=== PATIENT | male | born 1985 | race Caucasian/White ===

== ENCOUNTER 2016-09-18 08:56 | Emergency (ER) | payer OTHER ==
[~2016-09-18 08:56] MED LIST: LOPRESSOR50 MG PO; METOPROLOL TART25 M1 PO; ZES10 PO; ZOC10 PO
[2016-09-18 10:01] LABS: BASOPHIL % 0.5 % (0-2); PLATELET COUNT 199 x10^3mcL (130-400); RED CELL DISTRIBUTION WIDTH 12.3 % (11.5-14.5)
[2016-09-18 10:14] LABS: CALCIUM 8.9 mg/dL (8.5-10.1); CHLORIDE SERUM 106 mmol/L (98-107); GFR1 > 60 mL/min; GLUCOSE SERUM 117 mg/dL (74-106); POTASSIUM SERUM 3.9 mmol/L (3.5-5.1); SODIUM SERUM 143 mmol/L (136-145)
[2016-09-18 10:17] LABS: ALKALINE PHOSPHATASE 69 U/L (46-116); ALT/SGPT 47 U/L (16-63); AMYLASE 83 U/L (25-115); AST/SGOT 19 U/L (15-37); BILIRUBIN TOTAL 0.5 mg/dL (0.20-1.00); LIPASE 114 IU/L (73-393); TOTAL PROTEIN, SERUM 7.4 g/dL (6.4-8.2)
[2016-09-18 10:34] LABS: AMPHETAMINE QUAL UR NONE DETECTED (NEG <=1000)
[2016-09-18 11:58] VITALS: BP 141/84
== END 2016-09-18 11:58 | disposition home or self-care (01) ==
LOC: ED 08:56
PROVIDERS: Emergency Medicine
DX: F41.1 Generalized anxiety disorder (principal); I10 Essential (primary) hypertension; E78.00 Pure hypercholesterolemia, unspecified
CPT/HCPCS: 80307; G0480

== ENCOUNTER 2016-11-24 08:53 | Emergency (ER) | payer OTHER ==
[~2016-11-24] VITALS: Ht 177.8 cm; Wt 103.0 kg
[2016-11-24 10:30] VITALS: BP 142/88
== END 2016-11-24 10:32 | disposition home or self-care (01) ==
LOC: ED 08:53
DX: G56.03 Carpal tunnel syndrome, bilateral upper limbs (principal); I10 Essential (primary) hypertension

== ENCOUNTER 2016-12-01 15:50 | Emergency (ER) | payer OTHER ==
[2016-12-01 16:46] LABS: BASOPHIL % 0.4 % (0-2); PLATELET COUNT 237 x10^3mcL (130-400); RED CELL DISTRIBUTION WIDTH 13.3 % (11.5-14.5)
[2016-12-01 16:56] LABS: CALCIUM 9.6 mg/dL (8.5-10.1); CARBON DIOXIDE 30.8 mmol/L (21-32); CHLORIDE SERUM 106 mmol/L (98-107); CREATININE SERUM 1.1 mg/dL (0.7-1.3); GFR1 > 60 mL/min; GLUCOSE SERUM 109 mg/dL (74-106); POTASSIUM SERUM 3.8 mmol/L (3.5-5.1); SODIUM SERUM 143 mmol/L (136-145)
[2016-12-01 17:08] LABS: ALBUMIN 4.4 g/dL (3.4-5.0); ALKALINE PHOSPHATASE 84 U/L (46-116); ALT/SGPT 79 U/L (16-63); AST/SGOT 36 U/L (15-37); BILIRUBIN TOTAL 0.5 mg/dL (0.20-1.00); T4(THYROXINE) 8.2 ug/dL (4.7-13.3)
[2016-12-01 17:16] LABS: TOTAL PROTEIN, SERUM 8.4 g/dL (6.4-8.2)
[2016-12-01 17:47] LABS: AMPHETAMINE QUAL UR NONE DETECTED (NEG <=1000)
[2016-12-01 18:36] VITALS: BP 149/98
== END 2016-12-01 18:36 | disposition home or self-care (01) ==
LOC: ED 15:50
PROVIDERS: Emergency Medicine
DX: R00.2 Palpitations (principal); I10 Essential (primary) hypertension
CPT/HCPCS: 36415

== ENCOUNTER 2016-12-22 17:05 | Emergency (ER) | payer OTHER ==
[~2016-12-22] VITALS: Ht 175.3 cm; Wt 104.3 kg
[2016-12-22 20:00] VITALS: BP 145/99
== END 2016-12-22 20:00 | disposition home or self-care (01) ==
LOC: ED 17:05
DX: F41.1 Generalized anxiety disorder (principal); I10 Essential (primary) hypertension; E78.5 Hyperlipidemia, unspecified

== ENCOUNTER 2017-01-27 13:23 | Emergency (ER) | payer OTHER ==
[2017-01-27 16:13] LABS: BASOPHIL % 0.5 % (0-2); PLATELET COUNT 235 x10^3mcL (130-400); RED CELL DISTRIBUTION WIDTH 13.3 % (11.5-14.5)
[2017-01-27 16:17] LABS: CALCIUM 9.3 mg/dL (8.5-10.1); CARBON DIOXIDE 27.5 mmol/L (21-32); CHLORIDE SERUM 102 mmol/L (98-107); CREATININE SERUM 0.8 mg/dL (0.7-1.3); GFR1 > 60 mL/min; GLUCOSE SERUM 95 mg/dL (74-106); POTASSIUM SERUM 3.9 mmol/L (3.5-5.1); SODIUM SERUM 138 mmol/L (136-145)
[2017-01-27 17:05] LABS: AMPHETAMINE QUAL UR NONE DETECTED (NEG <=1000)
[2017-01-27 18:36] VITALS: BP 133/97
== END 2017-01-27 18:45 | disposition home or self-care (01) ==
LOC: ED 13:23
PROVIDERS: Emergency Medicine
DX: F41.9 Anxiety disorder, unspecified (principal)
CPT/HCPCS: 36415; Q0092

== ENCOUNTER 2017-02-09 14:50 | Emergency (ER) | payer OTHER ==
[~2017-02-09] VITALS: Ht 175.3 cm; Wt 103.9 kg
[2017-02-09 17:32] VITALS: BP 155/95
== END 2017-02-09 17:32 | disposition home or self-care (01) ==
LOC: ED 14:50
DX: F41.9 Anxiety disorder, unspecified (principal); F14.10 Cocaine abuse, uncomplicated; F10.20 Alcohol dependence, uncomplicated; R03.0 Elevated blood-pressure reading, without diagnosis of hypertension; E78.5 Hyperlipidemia, unspecified; E66.9 Obesity, unspecified

== ENCOUNTER 2017-02-17 15:15 | Emergency (ER) | payer OTHER ==
[~2017-02-17] VITALS: Ht 175.3 cm; Wt 103.6 kg
[2017-02-17 16:09] LABS: BASOPHIL % 0.3 % (0-2); PLATELET COUNT 239 x10^3mcL (130-400); RED CELL DISTRIBUTION WIDTH 13.6 % (11.5-14.5)
[2017-02-17 16:19] LABS: AMPHETAMINE QUAL UR NONE DETECTED (NEG <=1000)
[2017-02-17 16:20] LABS: CALCIUM 9.1 mg/dL (8.5-10.1); CARBON DIOXIDE 27.1 mmol/L (21-32); CHLORIDE SERUM 105 mmol/L (98-107); CREATININE SERUM 0.9 mg/dL (0.7-1.3); GFR1 > 60 mL/min; GLUCOSE SERUM 114 mg/dL (74-106); POTASSIUM SERUM 3.7 mmol/L (3.5-5.1); SODIUM SERUM 140 mmol/L (136-145)
[2017-02-17 16:33] LABS: ALBUMIN 4.1 g/dL (3.4-5.0); ALKALINE PHOSPHATASE 80 U/L (46-116); ALT/SGPT 111 U/L (16-63); AST/SGOT 45 U/L (15-37); BILIRUBIN TOTAL 0.33 mg/dL (0.20-1.00); T4(THYROXINE) 8.6 ug/dL (4.7-13.3); TOTAL PROTEIN, SERUM 8.1 g/dL (6.4-8.2)
[2017-02-17 16:37] LABS: CK-MB 2.5 ng/mL (0-3.6)
[2017-02-17 17:56] VITALS: BP 153/102
== END 2017-02-17 17:54 | disposition home or self-care (01) ==
LOC: ED 15:15
PROVIDERS: Emergency Medicine
DX: R07.89 Other chest pain (principal); F41.9 Anxiety disorder, unspecified; I10 Essential (primary) hypertension; E78.5 Hyperlipidemia, unspecified
CPT/HCPCS: 36415; 36600; 83880

== ENCOUNTER 2017-02-28 16:09 | Emergency (ER) | payer OTHER ==
[~2017-02-28] VITALS: Ht 175.3 cm; Wt 103.0 kg
[2017-02-28 17:15] VITALS: BP 133/84
== END 2017-02-28 17:15 | disposition home or self-care (01) ==
LOC: ED 16:09
DX: F41.1 Generalized anxiety disorder (principal); I10 Essential (primary) hypertension; E78.5 Hyperlipidemia, unspecified

== ENCOUNTER 2017-03-06 21:01 | Emergency (ER) | payer OTHER ==
[2017-03-06 21:55] LABS: CALCIUM 8.7 mg/dL (8.5-10.1); CARBON DIOXIDE 25.7 mmol/L (21-32); CHLORIDE SERUM 103 mmol/L (98-107); CREATININE SERUM 0.9 mg/dL (0.7-1.3); GFR1 > 60 mL/min; GLUCOSE SERUM 107 mg/dL (74-106); MAGNESIUM 2.1 mg/dL (1.8-2.4); POTASSIUM SERUM 3.3 mmol/L (3.5-5.1); SODIUM SERUM 138 mmol/L (136-145)
[2017-03-06 21:56] LABS: BASOPHIL % 0.3 % (0-2); PLATELET COUNT 202 x10^3mcL (130-400); RED CELL DISTRIBUTION WIDTH 13.1 % (11.5-14.5)
[2017-03-06 23:27] VITALS: BP 131/98
== END 2017-03-06 23:27 | disposition home or self-care (01) ==
LOC: ED 21:01
PROVIDERS: Emergency Medicine
DX: E86.0 Dehydration (principal); R06.00 Dyspnea, unspecified
CPT/HCPCS: J7030

== ENCOUNTER 2017-04-12 10:36 | Emergency (ER) | payer OTHER ==
[2017-04-12 11:45] LABS: AMPHETAMINE QUAL UR NONE DETECTED (NEG <=1000)
[2017-04-12 11:47] LABS: LIPASE 112 IU/L (73-393)
[2017-04-12 13:51] VITALS: BP 149/95
== END 2017-04-12 13:51 | disposition home or self-care (01) ==
LOC: ED 10:36
PROVIDERS: Emergency Medicine
DX: R07.89 Other chest pain (principal); F41.0 Panic disorder [episodic paroxysmal anxiety]; I10 Essential (primary) hypertension; E78.5 Hyperlipidemia, unspecified; E66.9 Obesity, unspecified
CPT/HCPCS: G0480

== ENCOUNTER 2017-04-24 17:33 | Emergency (ER) | payer OTHER | END 2017-04-24 18:13 | disposition left against medical advice (07) | LOC: ED 17:33 | DX: Z53.21 Procedure and treatment not carried out due to patient leaving prior to being seen by health care provider (principal) ==

== ENCOUNTER 2017-06-13 18:05 | Emergency (ER) | payer OTHER ==
[~2017-06-13] VITALS: Ht 172.7 cm; Wt 104.3 kg
[2017-06-13 18:13] VITALS: Ht 172.7 cm; Wt 104.3 kg
[2017-06-13 19:25] VITALS: BP 150/90
== END 2017-06-13 19:25 | disposition home or self-care (01) ==
LOC: ED 18:05
DX: I10 Essential (primary) hypertension (principal); E78.5 Hyperlipidemia, unspecified

== ENCOUNTER 2017-07-14 11:44 | Emergency (ER) | payer OTHER ==
[~2017-07-14] VITALS: Ht 177.8 cm; Wt 103.9 kg
[2017-07-14 11:45] VITALS: Ht 177.8 cm; Wt 103.9 kg
[2017-07-14 12:59] VITALS: BP 156/94
== END 2017-07-14 12:59 | disposition home or self-care (01) ==
LOC: ED 11:44
DX: F41.9 Anxiety disorder, unspecified (principal); I10 Essential (primary) hypertension; E78.00 Pure hypercholesterolemia, unspecified
CPT/HCPCS: J2060

== ENCOUNTER 2017-08-28 20:40 | Emergency (ER) | payer OTHER ==
[~2017-08-28] VITALS: Ht 177.8 cm; Wt 104.5 kg
[2017-08-28 23:05] LABS: BASOPHIL % 0.4 % (0-2); PLATELET COUNT 201 x10^3mcL (130-400); RED CELL DISTRIBUTION WIDTH 12.9 % (11.5-14.5)
[2017-08-28 23:22] LABS: CALCIUM 9.3 mg/dL (8.5-10.1); CARBON DIOXIDE 31.2 mmol/L (21-32); CHLORIDE SERUM 102 mmol/L (98-107); GFR1 > 60 mL/min; GLUCOSE SERUM 93 mg/dL (74-106); POTASSIUM SERUM 3.6 mmol/L (3.5-5.1); SODIUM SERUM 140 mmol/L (136-145)
[2017-08-28 23:27] LABS: ALBUMIN 4.1 g/dL (3.4-5.0); ALKALINE PHOSPHATASE 70 U/L (46-116); ALT/SGPT 129 U/L (16-63); AST/SGOT 50 U/L (15-37); BILIRUBIN TOTAL 0.5 mg/dL (0.20-1.00); LIPASE 102 IU/L (73-393); TOTAL PROTEIN, SERUM 7.6 g/dL (6.4-8.2)
[2017-08-28 23:40] VITALS: BP 134/85
== END 2017-08-28 23:40 | disposition home or self-care (01) ==
LOC: ED 20:40
PROVIDERS: Emergency Medicine
DX: R10.11 Right upper quadrant pain (principal); I10 Essential (primary) hypertension; E78.5 Hyperlipidemia, unspecified
CPT/HCPCS: 36415

== ENCOUNTER 2017-09-15 08:47 | Emergency (ER) | payer OTHER ==
[~2017-09-15] VITALS: Ht 177.8 cm; Wt 105.7 kg
[2017-09-15 08:52] VITALS: Ht 177.8 cm; Wt 105.7 kg
[2017-09-15 10:51] VITALS: BP 138/86
== END 2017-09-15 10:51 | disposition home or self-care (01) ==
LOC: ED 08:47
DX: F41.9 Anxiety disorder, unspecified (principal); I10 Essential (primary) hypertension

== ENCOUNTER 2017-12-15 23:00 | Emergency (ER) | payer OTHER ==
[~2017-12-15] VITALS: Ht 177.8 cm; Wt 105.3 kg
[2017-12-15 23:47] VITALS: BP 134/96
== END 2017-12-15 23:42 | disposition home or self-care (01) ==
LOC: ED 23:00
DX: Z03.6 Encounter for observation for suspected toxic effect from ingested substance ruled out (principal); F41.9 Anxiety disorder, unspecified; I10 Essential (primary) hypertension

== ENCOUNTER 2018-02-23 11:19 | Emergency (ER) | payer OTHER ==
[~2018-02-23] VITALS: Ht 177.8 cm; Wt 103.9 kg
[2018-02-23 11:24] VITALS: BP 151/98; Ht 177.8 cm; Wt 103.9 kg
== END 2018-02-23 13:36 | disposition home or self-care (01) ==
LOC: ED 11:19
DX: T54.2X1A Toxic effect of corrosive acids and acid-like substances, accidental (unintentional), initial encounter (principal); Y92.69 Other specified industrial and construction area as the place of occurrence of the external cause; F41.9 Anxiety disorder, unspecified

== ENCOUNTER 2018-02-28 18:31 | Emergency (ER) | payer OTHER ==
[~2018-02-28] VITALS: Ht 177.8 cm; Wt 104.3 kg
[2018-02-28 19:23] VITALS: BP 134/94
== END 2018-02-28 19:23 | disposition home or self-care (01) ==
LOC: ED 18:31
DX: F41.0 Panic disorder [episodic paroxysmal anxiety] (principal); F10.10 Alcohol abuse, uncomplicated; I10 Essential (primary) hypertension; E78.00 Pure hypercholesterolemia, unspecified; K21.9 Gastro-esophageal reflux disease without esophagitis

== ENCOUNTER 2018-03-09 12:39 | Emergency (ER) | payer OTHER ==
[~2018-03-09] VITALS: Ht 175.3 cm; Wt 104.3 kg
[2018-03-09 12:41] VITALS: Ht 175.3 cm; Wt 104.3 kg
[2018-03-09 14:57] VITALS: BP 140/89
== END 2018-03-09 14:57 | disposition home or self-care (01) ==
LOC: ED 12:39
DX: F41.9 Anxiety disorder, unspecified (principal); R25.2 Cramp and spasm; I10 Essential (primary) hypertension; E78.5 Hyperlipidemia, unspecified; K21.9 Gastro-esophageal reflux disease without esophagitis

== ENCOUNTER 2018-03-09 20:06 | Emergency (ER) | payer OTHER ==
[2018-03-09 20:48] VITALS: BP 155/100; Ht 175.3 cm
== END 2018-03-09 22:26 | disposition left against medical advice (07) ==
LOC: ED 20:06
DX: Z53.21 Procedure and treatment not carried out due to patient leaving prior to being seen by health care provider (principal)

== ENCOUNTER 2018-04-07 16:43 | Emergency (ER) | payer OTHER ==
[~2018-04-07] VITALS: Ht 175.3 cm; Wt 102.5 kg
[2018-04-07 18:33] VITALS: BP 143/105
== END 2018-04-07 18:41 | disposition home or self-care (01) ==
LOC: ED 16:43
DX: F45.8 Other somatoform disorders (principal); I10 Essential (primary) hypertension; E78.00 Pure hypercholesterolemia, unspecified; F41.9 Anxiety disorder, unspecified; E78.5 Hyperlipidemia, unspecified; K21.9 Gastro-esophageal reflux disease without esophagitis

== ENCOUNTER 2018-04-10 18:37 | Emergency (ER) | payer OTHER ==
[~2018-04-10] VITALS: Ht 175.3 cm; Wt 99.8 kg
[2018-04-10 18:46] VITALS: Ht 175.3 cm; Wt 99.8 kg
[2018-04-10 20:26] VITALS: BP 137/98
== END 2018-04-10 20:26 | disposition home or self-care (01) ==
LOC: ED 18:37
DX: F41.9 Anxiety disorder, unspecified (principal); F15.10 Other stimulant abuse, uncomplicated; I10 Essential (primary) hypertension; E78.5 Hyperlipidemia, unspecified; K21.9 Gastro-esophageal reflux disease without esophagitis

== ENCOUNTER 2018-05-24 16:50 | Emergency (ER) | payer OTHER ==
[~2018-05-24] VITALS: Ht 177.8 cm; Wt 105.0 kg
[2018-05-24 17:18] VITALS: Ht 177.8 cm; Wt 105.0 kg
[2018-05-24 20:59] VITALS: BP 141/98
== END 2018-05-24 20:59 | disposition home or self-care (01) ==
LOC: ED 16:50
DX: I10 Essential (primary) hypertension (principal); F41.9 Anxiety disorder, unspecified; K21.9 Gastro-esophageal reflux disease without esophagitis; E78.5 Hyperlipidemia, unspecified; F10.10 Alcohol abuse, uncomplicated

== ENCOUNTER 2018-06-05 12:28 | Emergency (ER) | payer OTHER ==
[~2018-06-05] VITALS: Ht 165.1 cm; Wt 103.9 kg
[2018-06-05 12:37] VITALS: Ht 165.1 cm; Wt 103.9 kg
[2018-06-05 13:20] VITALS: BP 146/89
== END 2018-06-05 13:20 | disposition home or self-care (01) ==
LOC: ED 12:28
DX: S00.06XA Insect bite (nonvenomous) of scalp, initial encounter (principal); F41.9 Anxiety disorder, unspecified; I10 Essential (primary) hypertension; K21.9 Gastro-esophageal reflux disease without esophagitis; E78.5 Hyperlipidemia, unspecified; F10.10 Alcohol abuse, uncomplicated; W57.XXXA Bitten or stung by nonvenomous insect and other nonvenomous arthropods, initial encounter; Y93.89 Activity, other specified; Y92.89 Other specified places as the place of occurrence of the external cause; Y99.8 Other external cause status

== ENCOUNTER 2018-06-12 12:09 | Emergency (ER) | payer OTHER ==
[~2018-06-12] VITALS: Ht 177.8 cm; Wt 104.8 kg
[2018-06-12 12:13] VITALS: BP 145/103; Ht 177.8 cm; Wt 104.8 kg
== END 2018-06-12 14:23 | disposition left against medical advice (07) ==
LOC: ED 12:09
DX: Z53.21 Procedure and treatment not carried out due to patient leaving prior to being seen by health care provider (principal)

== ENCOUNTER 2018-07-16 10:03 | Emergency (ER) | payer OTHER ==
[~2018-07-16] VITALS: Ht 177.8 cm; Wt 103.9 kg
[2018-07-16 10:28] VITALS: Ht 177.8 cm; Wt 103.9 kg
[2018-07-16 15:19] VITALS: BP 135/87
== END 2018-07-16 15:19 | disposition home or self-care (01) ==
LOC: ED 10:03
DX: F41.9 Anxiety disorder, unspecified (principal); R07.89 Other chest pain; R20.2 Paresthesia of skin; I10 Essential (primary) hypertension; F10.10 Alcohol abuse, uncomplicated; K21.9 Gastro-esophageal reflux disease without esophagitis; E78.5 Hyperlipidemia, unspecified; Y90.0 Blood alcohol level of less than 20 mg/100 ml

== ENCOUNTER 2018-09-28 21:00 | Inpatient (IN) | payer OTHER ==
[~2018-09-28] VITALS: Ht 177.8 cm; Wt 101.3 kg
[2018-09-28 22:05] LABS: BASOPHIL % 0.3 % (0-2); PLATELET COUNT 183 x10^3mcL (130-400); RED CELL DISTRIBUTION WIDTH 12.8 % (11.5-14.5)
[2018-09-28 22:14] LABS: CALCIUM 8.7 mg/dL (8.5-10.1); CHLORIDE SERUM 98 mmol/L (98-107); CREATININE SERUM 1.3 mg/dL (0.7-1.3); GFR1 > 60 mL/min; GLUCOSE SERUM 142 mg/dL (74-106); POTASSIUM SERUM 3.3 mmol/L (3.5-5.1); SODIUM SERUM 134 mmol/L (136-145)
[2018-09-28 22:19] LABS: ALBUMIN 4.1 g/dL (3.4-5.0); ALKALINE PHOSPHATASE 67 U/L (46-116); ALT/SGPT 88 U/L (16-63); AST/SGOT 28 U/L (15-37); BILIRUBIN TOTAL 1.15 mg/dL (0.20-1.00); LIPASE 94 IU/L (73-393); TOTAL PROTEIN, SERUM 7.6 g/dL (6.4-8.2)
[2018-09-29 00:19] VITALS: BP 156/87
[2018-09-29 00:21] VITALS: Ht 177.8 cm; Wt 101.3 kg
[2018-09-29 05:36] VITALS: BP 130/85
[2018-09-29 07:08] LABS: BASOPHIL % 0.3 % (0-2); PLATELET COUNT 179 x10^3mcL (130-400); RED CELL DISTRIBUTION WIDTH 13.1 % (11.5-14.5)
[2018-09-29 07:23] LABS: ALBUMIN 3.4 g/dL (3.4-5.0); ALKALINE PHOSPHATASE 54 U/L (46-116); ALT/SGPT 68 U/L (16-63); AST/SGOT 25 U/L (15-37); BILIRUBIN TOTAL 1.5 mg/dL (0.20-1.00); CALCIUM 8.3 mg/dL (8.5-10.1); CARBON DIOXIDE 27.1 mmol/L (21-32); CHLORIDE SERUM 102 mmol/L (98-107); CREATININE SERUM 1.1 mg/dL (0.7-1.3); GFR1 > 60 mL/min; GLUCOSE SERUM 105 mg/dL (74-106); POTASSIUM SERUM 3.7 mmol/L (3.5-5.1); SODIUM SERUM 139 mmol/L (136-145)
[2018-09-29 08:35] VITALS: BP 126/80
[2018-09-29 17:22] VITALS: BP 128/78
[2018-09-29 21:10] VITALS: BP 110/60
[2018-09-30 05:29] VITALS: BP 108/71
[2018-09-30 06:22] LABS: BASOPHIL % 0.2 % (0-2); PLATELET COUNT 196 x10^3mcL (130-400); RED CELL DISTRIBUTION WIDTH 13.3 % (11.5-14.5)
[2018-09-30 06:41] LABS: ALBUMIN 3.5 g/dL (3.4-5.0); ALKALINE PHOSPHATASE 49 U/L (46-116); ALT/SGPT 63 U/L (16-63); AST/SGOT 32 U/L (15-37); BILIRUBIN TOTAL 0.7 mg/dL (0.20-1.00); CARBON DIOXIDE 26.9 mmol/L (21-32); CHLORIDE SERUM 103 mmol/L (98-107); GFR1 > 60 mL/min; GLUCOSE SERUM 141 mg/dL (74-106); MAGNESIUM 2.2 mg/dL (1.8-2.4); PHOSPHOROUS 3.2 mg/dL (2.5-4.9); POTASSIUM SERUM 3.9 mmol/L (3.5-5.1); SODIUM SERUM 140 mmol/L (136-145); TOTAL PROTEIN, SERUM 7.5 g/dL (6.4-8.2)
[2018-09-30 09:00] VITALS: BP 117/69
[2018-09-30] MEDS ORDERED: NOR5 PO (14:35)
[2018-09-30] MEDS ORDERED: NORCO1 TA2 PO (14:36)
[2018-09-30 16:26] VITALS: BP 108/71
[2018-09-30 17:14] VITALS: BP 117/69
== END 2018-09-30 17:30 | disposition home or self-care (01) | DRG 234 ==
LOC: ED 21:00 → MU 23:13
PROVIDERS: Emergency Medicine; Surgery; ADMIT Internal Medicine
PROC: 0DTJ4ZZ Resection of Appendix, Percutaneous Endoscopic Approach (ICD-10-PCS; principal; 2018-09-29 15:00)
DX: K35.80 Unspecified acute appendicitis (principal); E78.5 Hyperlipidemia, unspecified; F10.10 Alcohol abuse, uncomplicated; Y90.0 Blood alcohol level of less than 20 mg/100 ml; K21.9 Gastro-esophageal reflux disease without esophagitis; F41.9 Anxiety disorder, unspecified; I10 Essential (primary) hypertension
CPT/HCPCS: J1170; J2175; J2250; J2543; J3010; J3480; J3490; J7030; J7042

== ENCOUNTER 2018-10-05 19:34 | Emergency (ER) | payer OTHER ==
[~2018-10-05] VITALS: Ht 177.8 cm; Wt 103.4 kg
[~2018-10-05 19:34] MED LIST changes: +NOR5 PO; +NORCO1 TA2 PO
[2018-10-05 19:47] VITALS: Ht 177.8 cm; Wt 103.4 kg
[2018-10-05 20:35] LABS: BASOPHIL % 0.5 % (0-2); PLATELET COUNT 253 x10^3mcL (130-400); RED CELL DISTRIBUTION WIDTH 12.9 % (11.5-14.5)
[2018-10-05 20:40] LABS: CALCIUM 9.3 mg/dL (8.5-10.1); CARBON DIOXIDE 34.6 mmol/L (21-32); CHLORIDE SERUM 101 mmol/L (98-107); GFR1 > 60 mL/min; GLUCOSE SERUM 119 mg/dL (74-106); POTASSIUM SERUM 3.8 mmol/L (3.5-5.1); SODIUM SERUM 140 mmol/L (136-145)
[2018-10-05 20:45] LABS: ALKALINE PHOSPHATASE 93 U/L (46-116); ALT/SGPT 88 U/L (16-63); AST/SGOT 24 U/L (15-37); BILIRUBIN TOTAL 0.5 mg/dL (0.20-1.00)
[2018-10-05 22:51] VITALS: BP 164/93
== END 2018-10-05 22:51 | disposition home or self-care (01) ==
LOC: ED 19:34
DX: R10.32 Left lower quadrant pain (principal); G89.18 Other acute postprocedural pain; Z90.89 Acquired absence of other organs
CPT/HCPCS: 36415

== ENCOUNTER 2018-10-21 18:37 | Emergency (ER) | payer OTHER ==
[~2018-10-21] VITALS: Ht 177.8 cm; Wt 102.1 kg
[2018-10-21 18:40] VITALS: Ht 177.8 cm; Wt 102.1 kg
[2018-10-21 19:32] VITALS: BP 149/95
== END 2018-10-21 19:32 | disposition home or self-care (01) ==
LOC: ED 18:37
DX: R10.32 Left lower quadrant pain (principal); R19.7 Diarrhea, unspecified; L90.5 Scar conditions and fibrosis of skin; T81.89XA Other complications of procedures, not elsewhere classified, initial encounter; I10 Essential (primary) hypertension; F41.9 Anxiety disorder, unspecified; K21.9 Gastro-esophageal reflux disease without esophagitis; F10.10 Alcohol abuse, uncomplicated; E78.5 Hyperlipidemia, unspecified; Z90.89 Acquired absence of other organs

== ENCOUNTER 2018-11-17 20:25 | Emergency (ER) | payer OTHER ==
[~2018-11-17] VITALS: Ht 175.3 cm; Wt 99.8 kg
[2018-11-17 21:28] LABS: PLATELET COUNT 219 x10^3mcL (130-400); RED CELL DISTRIBUTION WIDTH 13.6 % (11.5-14.5)
[2018-11-17 21:29] LABS: BASOPHIL % 0 % (0-2)
[2018-11-17 21:42] LABS: CALCIUM 10.1 mg/dL (8.5-10.1); CARBON DIOXIDE 26.5 mmol/L (21-32); CHLORIDE SERUM 105 mmol/L (98-107); GFR1 > 60 mL/min; GLUCOSE SERUM 130 mg/dL (74-106); POTASSIUM SERUM 4.3 mmol/L (3.5-5.1); SODIUM SERUM 143 mmol/L (136-145)
[2018-11-17 21:46] LABS: ALBUMIN 4.6 g/dL (3.4-5.0); ALKALINE PHOSPHATASE 72 U/L (46-116); ALT/SGPT 165 U/L (16-63); AST/SGOT 56 U/L (15-37); BILIRUBIN TOTAL 0.7 mg/dL (0.20-1.00); LIPASE 82 IU/L (73-393); TOTAL PROTEIN, SERUM 8.6 g/dL (6.4-8.2)
[2018-11-17 23:11] VITALS: BP 139/83
== END 2018-11-17 23:11 | disposition home or self-care (01) ==
LOC: ED 20:25
PROVIDERS: Emergency Medicine
DX: K52.9 Noninfective gastroenteritis and colitis, unspecified (principal); I10 Essential (primary) hypertension; F41.9 Anxiety disorder, unspecified; K21.9 Gastro-esophageal reflux disease without esophagitis
CPT/HCPCS: J2405; J7030

== ENCOUNTER 2018-12-11 12:41 | Emergency (ER) | payer OTHER ==
[~2018-12-11] VITALS: Ht 175.3 cm; Wt 102.1 kg
[2018-12-11 12:48] VITALS: Ht 175.3 cm; Wt 102.1 kg
[2018-12-11 13:20] LABS: BASOPHIL % 0.3 % (0-2); PLATELET COUNT 215 x10^3mcL (130-400); RED CELL DISTRIBUTION WIDTH 13.5 % (11.5-14.5)
[2018-12-11 13:36] LABS: CALCIUM 9.5 mg/dL (8.5-10.1); CARBON DIOXIDE 29.3 mmol/L (21-32); CHLORIDE SERUM 102 mmol/L (98-107); CREATININE SERUM 1.2 mg/dL (0.7-1.3); GFR1 > 60 mL/min; GLUCOSE SERUM 137 mg/dL (74-106); POTASSIUM SERUM 3.9 mmol/L (3.5-5.1); SODIUM SERUM 141 mmol/L (136-145)
[2018-12-11 13:41] LABS: ALBUMIN 4.1 g/dL (3.4-5.0); ALKALINE PHOSPHATASE 78 U/L (46-116); ALT/SGPT 141 U/L (16-63); AST/SGOT 67 U/L (15-37); BILIRUBIN TOTAL 0.8 mg/dL (0.20-1.00)
[2018-12-11 16:25] LABS: AMPHETAMINE QUAL UR NONE DETECTED (See below)
[2018-12-11 16:44] VITALS: BP 135/77
== END 2018-12-11 16:44 | disposition home or self-care (01) ==
LOC: ED 12:41
PROVIDERS: Specialist
DX: R07.89 Other chest pain (principal); I10 Essential (primary) hypertension; F41.9 Anxiety disorder, unspecified; K21.9 Gastro-esophageal reflux disease without esophagitis; E78.5 Hyperlipidemia, unspecified; F10.239 Alcohol dependence with withdrawal, unspecified
CPT/HCPCS: J2060; J3490; Q0092

== ENCOUNTER 2018-12-12 21:51 | Emergency (ER) | payer OTHER ==
[~2018-12-12] VITALS: Ht 175.3 cm; Wt 102.5 kg
[2018-12-12 21:59] VITALS: Ht 175.3 cm; Wt 102.5 kg
[2018-12-12 22:43] VITALS: BP 141/97
== END 2018-12-12 22:43 | disposition home or self-care (01) ==
LOC: ED 21:51
DX: I10 Essential (primary) hypertension (principal); F41.9 Anxiety disorder, unspecified; K21.9 Gastro-esophageal reflux disease without esophagitis; E78.5 Hyperlipidemia, unspecified; Z90.49 Acquired absence of other specified parts of digestive tract

== ENCOUNTER 2018-12-22 13:30 | Emergency (ER) | payer OTHER ==
[~2018-12-22] VITALS: Ht 175.3 cm; Wt 100.7 kg
[2018-12-22 13:39] VITALS: Ht 175.3 cm; Wt 100.7 kg
[2018-12-22 14:25] LABS: BASOPHIL % 0.4 % (0-2); PLATELET COUNT 233 x10^3mcL (130-400); RED CELL DISTRIBUTION WIDTH 13.5 % (11.5-14.5)
[2018-12-22 14:37] LABS: CALCIUM 9.8 mg/dL (8.5-10.1); CHLORIDE SERUM 101 mmol/L (98-107); CREATININE SERUM 0.9 mg/dL (0.7-1.3); GFR1 > 60 mL/min; GLUCOSE SERUM 116 mg/dL (74-106); POTASSIUM SERUM 3.9 mmol/L (3.5-5.1); SODIUM SERUM 141 mmol/L (136-145)
[2018-12-22 14:42] LABS: ALBUMIN 3.9 g/dL (3.4-5.0); ALKALINE PHOSPHATASE 73 U/L (46-116); ALT/SGPT 141 U/L (16-63); AST/SGOT 63 U/L (15-37); BILIRUBIN TOTAL 0.8 mg/dL (0.20-1.00); TOTAL PROTEIN, SERUM 7.8 g/dL (6.4-8.2)
[2018-12-22 15:00] VITALS: BP 143/97
== END 2018-12-22 15:00 | disposition home or self-care (01) ==
LOC: ED 13:30
PROVIDERS: Emergency Medicine
DX: R07.89 Other chest pain (principal); I10 Essential (primary) hypertension; F41.9 Anxiety disorder, unspecified; F43.9 Reaction to severe stress, unspecified; K21.9 Gastro-esophageal reflux disease without esophagitis; E78.5 Hyperlipidemia, unspecified
CPT/HCPCS: 36415; Q0092

== ENCOUNTER 2018-12-26 18:36 | Emergency (ER) | payer OTHER ==
[~2018-12-26] VITALS: Ht 175.3 cm; Wt 98.9 kg
[2018-12-26 18:43] VITALS: Ht 175.3 cm; Wt 98.9 kg
[2018-12-26 19:34] LABS: BASOPHIL % 0.3 % (0-2); PLATELET COUNT 221 x10^3mcL (130-400); RED CELL DISTRIBUTION WIDTH 13.3 % (11.5-14.5)
[2018-12-26 19:54] LABS: CALCIUM 9.9 mg/dL (8.5-10.1); CARBON DIOXIDE 28.2 mmol/L (21-32); CHLORIDE SERUM 101 mmol/L (98-107); CREATININE SERUM 1.1 mg/dL (0.7-1.3); GFR1 > 60 mL/min; GLUCOSE SERUM 89 mg/dL (74-106); POTASSIUM SERUM 3.9 mmol/L (3.5-5.1); SODIUM SERUM 139 mmol/L (136-145)
[2018-12-26 19:58] LABS: ALBUMIN 4.3 g/dL (3.4-5.0); ALKALINE PHOSPHATASE 67 U/L (46-116); ALT/SGPT 397 U/L (16-63); AST/SGOT 182 U/L (15-37); BILIRUBIN TOTAL 0.7 mg/dL (0.20-1.00); TOTAL PROTEIN, SERUM 8.2 g/dL (6.4-8.2)
[2018-12-26 20:55] VITALS: BP 146/100
== END 2018-12-26 20:55 | disposition home or self-care (01) ==
LOC: ED 18:36
DX: F41.9 Anxiety disorder, unspecified (principal); R10.9 Unspecified abdominal pain; I10 Essential (primary) hypertension; E66.9 Obesity, unspecified; F10.20 Alcohol dependence, uncomplicated; K21.9 Gastro-esophageal reflux disease without esophagitis
CPT/HCPCS: 36415

== ENCOUNTER 2019-02-19 09:42 | Emergency (ER) | payer OTHER ==
[~2019-02-19] VITALS: Ht 177.8 cm; Wt 97.5 kg
[2019-02-19 09:46] VITALS: Ht 177.8 cm; Wt 97.5 kg
[2019-02-19 11:35] VITALS: BP 145/79
== END 2019-02-19 11:35 | disposition home or self-care (01) ==
LOC: ED 09:42
DX: F41.9 Anxiety disorder, unspecified (principal); F10.10 Alcohol abuse, uncomplicated; I10 Essential (primary) hypertension; E78.5 Hyperlipidemia, unspecified; K21.9 Gastro-esophageal reflux disease without esophagitis; Z90.89 Acquired absence of other organs

== ENCOUNTER 2019-02-22 13:56 | Emergency (ER) | payer OTHER ==
[~2019-02-22] VITALS: Ht 177.8 cm; Wt 95.7 kg
[2019-02-22 14:13] VITALS: BP 149/100; Ht 177.8 cm; Wt 95.7 kg
[2019-02-22 15:23] LABS: BASOPHIL % 0.2 % (0-2); PLATELET COUNT 181 x10^3mcL (130-400); RED CELL DISTRIBUTION WIDTH 13.2 % (11.5-14.5)
[2019-02-22 15:33] LABS: CALCIUM 8.9 mg/dL (8.5-10.1); CARBON DIOXIDE 30.1 mmol/L (21-32); CHLORIDE SERUM 99 mmol/L (98-107); CREATININE SERUM 0.9 mg/dL (0.7-1.3); GFR1 > 60 mL/min; GLUCOSE SERUM 103 mg/dL (74-106); POTASSIUM SERUM 3.9 mmol/L (3.5-5.1); SODIUM SERUM 137 mmol/L (136-145)
[2019-02-22 15:37] LABS: ALBUMIN 4.1 g/dL (3.4-5.0); ALKALINE PHOSPHATASE 91 U/L (46-116); ALT/SGPT 119 U/L (16-63); AST/SGOT 120 U/L (15-37); BILIRUBIN TOTAL 0.92 mg/dL (0.20-1.00); LIPASE 154 IU/L (73-393)
[2019-02-22 15:39] LABS: AMYLASE 135 U/L (25-115); TOTAL PROTEIN, SERUM 8.3 g/dL (6.4-8.2)
== END 2019-02-22 16:29 | disposition home or self-care (01) ==
LOC: ED 13:56
PROVIDERS: Emergency Medicine
DX: R42 Dizziness and giddiness (principal); F41.9 Anxiety disorder, unspecified; I10 Essential (primary) hypertension; E78.5 Hyperlipidemia, unspecified; K21.9 Gastro-esophageal reflux disease without esophagitis; Z90.89 Acquired absence of other organs
CPT/HCPCS: 36415

== ENCOUNTER 2019-07-28 12:16 | Emergency (ER) | payer OTHER ==
[~2019-07-28] VITALS: Ht 177.8 cm; Wt 97.1 kg
[2019-07-28 13:28] VITALS: BP 129/97; Ht 177.8 cm; Wt 97.1 kg
[2019-07-28 14:11] LABS: BASOPHIL % 0.3 % (0-2); PLATELET COUNT 225 x10^3mcL (130-400); RED CELL DISTRIBUTION WIDTH 13.2 % (11.5-14.5)
[2019-07-28 14:21] LABS: CARBON DIOXIDE 31.5 mmol/L (21-32); CHLORIDE SERUM 96 mmol/L (98-107); GFR1 > 60 mL/min; GLUCOSE SERUM 103 mg/dL (74-106); POTASSIUM SERUM 3.7 mmol/L (3.5-5.1); SODIUM SERUM 134 mmol/L (136-145)
[2019-07-28 14:25] LABS: ALBUMIN 4.4 g/dL (3.4-5.0); ALKALINE PHOSPHATASE 72 U/L (46-116); ALT/SGPT 262 U/L (16-63); AST/SGOT 356 U/L (15-37); BILIRUBIN TOTAL 1.8 mg/dL (0.20-1.00); LIPASE 189 IU/L (73-393)
[2019-07-28 14:28] LABS: TOTAL PROTEIN, SERUM 8.9 g/dL (6.4-8.2)
== END 2019-07-28 15:00 | disposition home or self-care (01) ==
LOC: ED 12:16
PROVIDERS: Emergency Medicine
DX: K42.9 Umbilical hernia without obstruction or gangrene (principal); I10 Essential (primary) hypertension; E78.5 Hyperlipidemia, unspecified; K21.9 Gastro-esophageal reflux disease without esophagitis; F10.10 Alcohol abuse, uncomplicated; Z90.89 Acquired absence of other organs
CPT/HCPCS: 36415

== ENCOUNTER 2019-10-24 11:17 | Emergency (ER) | payer OTHER ==
[~2019-10-24] VITALS: Ht 177.8 cm; Wt 93.4 kg
[2019-10-24 11:26] VITALS: Ht 177.8 cm; Wt 93.4 kg
[2019-10-24 12:11] LABS: BASOPHIL % 0.7 % (0-2); PLATELET COUNT 315 x10^3mcL (130-400); RED CELL DISTRIBUTION WIDTH 13.3 % (11.5-14.5)
[2019-10-24 12:28] LABS: ALBUMIN 4.4 g/dL (3.4-5.0); ALKALINE PHOSPHATASE 64 U/L (46-116); ALT/SGPT 103 U/L (16-63); AST/SGOT 60 U/L (15-37); BILIRUBIN TOTAL 0.6 mg/dL (0.20-1.00); CALCIUM 9.3 mg/dL (8.5-10.1); CARBON DIOXIDE 26.8 mmol/L (21-32); CHLORIDE SERUM 99 mmol/L (98-107); CREATININE SERUM 1.1 mg/dL (0.7-1.3); GFR1 > 60 mL/min; GLUCOSE SERUM 129 mg/dL (74-106); LIPASE 140 IU/L (73-393); POTASSIUM SERUM 3.6 mmol/L (3.5-5.1); SODIUM SERUM 139 mmol/L (136-145); TOTAL PROTEIN, SERUM 8.9 g/dL (6.4-8.2)
[2019-10-24 13:46] VITALS: BP 135/87
== END 2019-10-24 13:46 | disposition home or self-care (01) ==
LOC: ED 11:17
PROVIDERS: Emergency Medicine
DX: K29.20 Alcoholic gastritis without bleeding (principal); F41.9 Anxiety disorder, unspecified; R07.89 Other chest pain; F10.20 Alcohol dependence, uncomplicated; K21.9 Gastro-esophageal reflux disease without esophagitis; E78.5 Hyperlipidemia, unspecified; I10 Essential (primary) hypertension
CPT/HCPCS: J1630; J2405; J7030; Q0092